=== PATIENT | male | born 1970 | race Two or more races ===

== ENCOUNTER → 2024-02-04 | Emergency (ER) | payer OTHER ==
[~2024-02-04] VITALS: Ht 180.3 cm; Wt 95.3 kg
[~2024-02-04] MED LIST: 0.9 % SODIUM CHLORIDE 1,000 ML IV STA; FAMOtidine 10 MG/ML (4ML VIAL) IV PUSH STA; ONDANSETRON HCL 2 MG/ML VIAL IV STA; THIAMINE HCL 100 MG/ML 2 ML VIAL IV STA
[2024-02-04 02:39] LABS: HEMATOCRIT 38.8 % (39.0-48.0); HEMOGLOBIN 13.4 g/dL (13-16.00); MEAN CELL VOLUME 100.9 fL (80.0-100.00); MEAN CORPUSCULAR HEMOGLOBIN 34.8 pg (27.00-32.0); MEAN CORPUSCULAR HGB CONC 34.5 g/dl (32.0-36.0); PLATELET COUNT 186 K/uL (150-450); RED BLOOD COUNT 3.84 M/uL (4.00-6.00); RED CELL DISTRIBUTION WIDTH 14.7 % (11.5-14.5)
[2024-02-04 02:45] LABS: INR 1.08; PARTIAL THROMBOPLASTIN TIME 27.1 SECONDS (22.0-34.0); PROTHROMBIN TIME 11.7 SECONDS (9.0-11.5)
[2024-02-04 02:50] LABS: ALBUMIN 3.8 gm/dL (3.4-5.0); BILIRUBIN TOTAL 1.62 mg/dL (0.3-1.2); CALCIUM 8.8 mg/dL (8.5-10.1); CREATININE SERUM 2.39 mg/dL (0.70-1.30); GFR 28.71; GLOBULINA 4.9 G/DL (2.4-3.5); POTASSIUM 3.29 mEq/L (3.5-5.1); TOTAL PROTEIN 8.7 gm/dL (6.4-8.2)
== END | disposition home or self-care (01) ==
LOC: ER 00:49
DX: F10.129 Alcohol abuse with intoxication, unspecified (principal); Z88.8 Allergy status to other drugs, medicaments and biological substances; K29.70 Gastritis, unspecified, without bleeding; R11.10 Vomiting, unspecified